=== PATIENT | male | born 1975 | race Hispanic/Latino ===

== ENCOUNTER 2022-05-26 11:20 | Emergency (ER) | payer OTHER ==
[~2022-05-26] VITALS: Ht 167.6 cm; Wt 77.1 kg
[2022-05-26 11:22] VITALS: BP 116/63
[2022-05-26] MEDS ORDERED: HYDROCODONE/ACETAMINOPHEN 5/325 MG TAB PO ONE (12:30)
[2022-05-26] MEDS ORDERED: ACET-2079 PO (12:53)
== END 2022-05-26 13:35 | disposition home or self-care (01) ==
LOC: EDH 11:20
DX: S82.141A Displaced bicondylar fracture of right tibia, initial encounter for closed fracture (principal); Y08.89XA Assault by other specified means, initial encounter; Y93.89 Activity, other specified; Y92.89 Other specified places as the place of occurrence of the external cause; Y99.8 Other external cause status
CPT/HCPCS: 73562

== ENCOUNTER 2022-06-13 11:59 | Emergency (ER) | payer OTHER ==
[~2022-06-13] VITALS: Ht 152.4 cm; Wt 77.1 kg
[~2022-06-13 11:59] MED LIST: ACET-2079 PO
[2022-06-13 12:01] VITALS: BP 125/74
[2022-06-13] MEDS ORDERED: LACT10SO5 PO (13:01)
== END 2022-06-13 14:07 | disposition home or self-care (01) ==
LOC: EDH 11:59
DX: K74.60 Unspecified cirrhosis of liver (principal); Z76.0 Encounter for issue of repeat prescription
CPT/HCPCS: 99281

== ENCOUNTER 2023-07-26 18:02 | Inpatient (IN) | payer OTHER ==
[~2023-07-26] VITALS: Ht 165.1 cm; Wt 87.0 kg
[~2023-07-26 18:02] MED LIST changes: +LACT10SO5 PO
[2023-07-26 19:43] LABS: RAPID GROUP A STREP negative (NEGATIVE)
[2023-07-26 19:53] LABS: SARS-CoV-2, RNA, NAAT NEGATIVE SARS CoV-2 (NEGATIVE)
[2023-07-26 19:55] LABS: INFLUENZA TYPE A Negative For Type A (NEGATIVE); INFLUENZA TYPE B Negative For Type B (NEGATIVE)
[2023-07-26] MEDS ORDERED: GUAIFENESIN-CODEINE 5 ML SYRUP PO ONE (20:30)
[2023-07-26] MEDS ORDERED: BENZONATATE 100 MG CAPSULE PO ONE (20:30)
[2023-07-26] MEDS ORDERED: IPRATROPIUM/ALBUTEROL SULFATE 3 ML SOLUTION IH ONE ×5 (21:47→22:00)
[2023-07-26 21:50] VITALS: PULSE 93; RESP 18
[2023-07-26] MEDS ORDERED: MAGNESIUM 2GM PREMIX 50ML 50 ML IV SCH (22:00)
[2023-07-26] MEDS ORDERED: SOLU-MEDROL 125MG VIAL IVP ONE (22:00)
[2023-07-26 23:17] LABS: BASOPHILS # (AUTO) 0.07 K/uL (0.00-0.20); BASOPHILS % (AUTO) 1.8 % (0.0-5.0); EOSINOPHILS # (AUTO) 0.32 K/uL (0.00-0.70); EOSINOPHILS % (AUTO) 8.2 % (0.0-8.0); HEMATOCRIT 44.8 % (42-54); IMMATURE GRANULOCYTE ABSOLUTE 0.01 K/uL (0-1); LYMPHOCYTES # (AUTO) 1.7 K/uL (1.0-4.8); LYMPHOCYTES % (AUTO) 44.3 % (21.0-51.0); MEAN CORPUSCULAR HEMOGLOBIN 29.8 pg (27.0-33.0); MEAN CORPUSCULAR HGB CONC 34.4 g/dL (32.0-36.0); MEAN CORPUSCULAR VOLUME 86.8 fL (79-99); MONOCYTES # (AUTO) 0.5 K/uL (0.1-1.0); MONOCYTES % (AUTO) 12.1 % (3.0-13.0); NEUTROPHILS # (AUTO) 1.3 K/uL (1.8-7.7); NEUTROPHILS % (AUTO) 33.3 % (40.0-77.0); PLATELET COUNT (AUTO) 92 K/uL (130-400); RED BLOOD CELL COUNT(AUTO) 5.16 MIL/uL (4.50-6.20); WHITE BLOOD COUNT (AUTO) 3.9 K/uL (4.8-10.8)
[2023-07-26 23:30] LABS: ALBUMIN 3.2 g/dL (3.5-5.0); BILIRUBIN,TOTAL 3.3 mg/dL (0.2-1.0); CREATININE 0.8 mg/dL (0.5-1.5); TOTAL PROTEIN, SERUM 6.5 g/dL (6.0-8.3)
[2023-07-26] MEDS ORDERED: IOHEXOL 350 MG/ML 100ML INFUS..BTL IV ONE (23:48)
[2023-07-27] VITALS (13 sets, daily range): BP systolic 147–166; BP diastolic 73–90; PULSE 100–127; RESP 17–22; O2SAT 96
[2023-07-27] MEDS: GUAIFENESIN-DM 200/20 MG 10 ML PO SCH ×4 (01:00→18:35)
[2023-07-27] MEDS ORDERED: ACETAMINOPHEN 325 MG TAB PO PRN ×2 (01:00)
[2023-07-27] MEDS ORDERED: HYDROCODONE/ACETAMINOPHEN 5/325 MG TAB PO PRN (01:00)
[2023-07-27] MEDS ORDERED: MORPHINE 4 MG SYG IV PRN (01:00)
[2023-07-27] MEDS ORDERED: ONDANSETRON 4MG INJ IV PRN (01:00)
[2023-07-27] MEDS ORDERED: RIFA550T PO (01:56)
[2023-07-27] MEDS ORDERED: GUAI473S6 PO (01:56)
[2023-07-27] MEDS ORDERED: BUPR-74 PO (01:58)
[2023-07-27] MEDS ORDERED: AZIL40TA PO (02:00)
[2023-07-27] MEDS ORDERED: GABA-529 PO (02:04)
[2023-07-27] MEDS ORDERED: GABAPENTIN 100 MG CAPSULE PO SCH (02:30)
[2023-07-27 05:26] LABS: BASOPHILS # (AUTO) 0.02 K/uL (0.00-0.20); BASOPHILS % (AUTO) 0.8 % (0.0-5.0); EOSINOPHILS # (AUTO) 0.03 K/uL (0.00-0.70); EOSINOPHILS % (AUTO) 1.2 % (0.0-8.0); HEMATOCRIT 39.6 % (42-54); IMMATURE GRANULOCYTE ABSOLUTE 0.01 K/uL (0-1); LYMPHOCYTES # (AUTO) 0.5 K/uL (1.0-4.8); LYMPHOCYTES % (AUTO) 19.6 % (21.0-51.0); MEAN CORPUSCULAR HEMOGLOBIN 29.7 pg (27.0-33.0); MEAN CORPUSCULAR HGB CONC 35.4 g/dL (32.0-36.0); MEAN CORPUSCULAR VOLUME 83.9 fL (79-99); MONOCYTES # (AUTO) 0.1 K/uL (0.1-1.0); NEUTROPHILS # (AUTO) 1.9 K/uL (1.8-7.7); PLATELET COUNT (AUTO) 85 K/uL (130-400); RED BLOOD CELL COUNT(AUTO) 4.72 MIL/uL (4.50-6.20); RED CELL DISTRIBUTION WIDTH 13.6 % (11.0-15.5); WHITE BLOOD COUNT (AUTO) 2.5 K/uL (4.8-10.8)
[2023-07-27 05:46] LABS: CREATININE 0.7 mg/dL (0.5-1.5); POTASSIUM 3.3 mmol/L (3.5-5.1)
[2023-07-27 05:50] LABS: INR 1.13 (0.85-1.15)
[2023-07-27 05:52] LABS: PARTIAL THROMBOPLASTIN TIME 31.6 SEC (26.3-35.5)
[2023-07-27 05:57] LABS: BAND NEUTROPHILS % (MANUAL) 1 % (0-2); BASOPHILS % (MANUAL) 1 % (0-2); EOSINOPHILS % (MANUAL) 1 % (1-6); LYMPHOCYTES % (MANUAL) 10 % (22-44); MAN.DIFF COMMENT-IMPRESSION MANUAL DIFFERENTIAL; MONOCYTES % (MANUAL) 1 % (2-9); REACTIVE LYMPHOCYTES 3 % (0-0); SEGMENTED NEUTROPHILS % 83 % (40-70); TOTAL CELLS COUNTED 100; WBC MORPHOLOGY REACTIVE LYMPHS 1+
[2023-07-27] MEDS: IPRATROPIUM/ALBUTEROL SULFATE 3 ML SOLUTION IH SCH ×4 (07:14→23:46)
[2023-07-27] MEDS: FAMOTIDINE 20MG TAB PO SCH ×2 (08:42→19:41)
[2023-07-27] MEDS: RIFAXIMIN 550 MG TABLET PO SCH ×2 (08:42→19:41)
[2023-07-27] MEDS: SOLU-MEDROL 40MG VIAL IVP SCH ×2 (08:42→15:11)
[2023-07-27] MEDS: BUPROPION HCL 150 MG TABLET.SA PO SCH (08:42)
[2023-07-27] MEDS ORDERED: AZILSARTAN MEDOXOMIL 40 MG PO SCH (09:00)
[2023-07-28] VITALS (8 sets, daily range): BP systolic 114–153; BP diastolic 67–89; PULSE 101–124; RESP 18–20; O2SAT 97–98
[2023-07-28] MEDS: SOLU-MEDROL 40MG VIAL IVP SCH ×2 (00:05→10:25)
[2023-07-28] MEDS: GUAIFENESIN-DM 200/20 MG 10 ML PO SCH ×3 (00:05→13:22)
[2023-07-28 05:59] LABS: BASOPHILS # (AUTO) 0.01 K/uL (0.00-0.20); BASOPHILS % (AUTO) 0.1 % (0.0-5.0); HEMATOCRIT 38.8 % (42-54); IMMATURE GRANULOCYTE ABSOLUTE 0.09 K/uL (0-1); LYMPHOCYTES # (AUTO) 0.7 K/uL (1.0-4.8); LYMPHOCYTES % (AUTO) 5.4 % (21.0-51.0); MEAN CORPUSCULAR HGB CONC 35.3 g/dL (32.0-36.0); MEAN CORPUSCULAR VOLUME 85.1 fL (79-99); MONOCYTES # (AUTO) 0.4 K/uL (0.1-1.0); MONOCYTES % (AUTO) 2.7 % (3.0-13.0); NEUTROPHILS # (AUTO) 12.2 K/uL (1.8-7.7); NEUTROPHILS % (AUTO) 91.1 % (40.0-77.0); PLATELET COUNT (AUTO) 91 K/uL (130-400); RED BLOOD CELL COUNT(AUTO) 4.56 MIL/uL (4.50-6.20); RED CELL DISTRIBUTION WIDTH 13.6 % (11.0-15.5); WHITE BLOOD COUNT (AUTO) 13.4 K/uL (4.8-10.8)
[2023-07-28 06:03] LABS: CREATININE 0.7 mg/dL (0.5-1.5); POTASSIUM 4.6 mmol/L (3.5-5.1)
[2023-07-28] MEDS: IPRATROPIUM/ALBUTEROL SULFATE 3 ML SOLUTION IH SCH ×2 (07:07→11:35)
[2023-07-28] MEDS: FAMOTIDINE 20MG TAB PO SCH (10:20)
[2023-07-28] MEDS: BUPROPION HCL 150 MG TABLET.SA PO SCH (10:20)
[2023-07-28] MEDS: RIFAXIMIN 550 MG TABLET PO SCH (10:20)
[2023-07-28] MEDS ORDERED: CEFD300C3 PO (14:27)
== END 2023-07-28 17:15 | disposition home or self-care (01) | DRG 203 ==
LOC: EDH 18:02 → EDHIP 18:03 → 3BH 07-27 01:02
PROVIDERS: ADMIT Internal Medicine; ATTEND Internal Medicine
DX: J45.998 Other asthma (principal); D69.6 Thrombocytopenia, unspecified; Z20.822 Contact with and (suspected) exposure to COVID-19; K74.60 Unspecified cirrhosis of liver; F31.9 Bipolar disorder, unspecified; I72.8 Aneurysm of other specified arteries; I10 Essential (primary) hypertension; F41.9 Anxiety disorder, unspecified; Z88.8 Allergy status to other drugs, medicaments and biological substances
CPT/HCPCS: 36415; 71045; 71270; 80048; 80053; 83605; 83735; 83880; 84484; 85025; 85610; 85730; 87040; 87635; 87804; 87880; 94640; 94664; C9803; G0378; J2920; J2930; J3475; Q9967

== ENCOUNTER 2024-08-05 16:24 | Inpatient (IN) | payer SELFPAY ==
[~2024-08-05] VITALS: Ht 167.6 cm; Wt 87.0 kg
[~2024-08-05 16:24] MED LIST changes: -ACET-2079 PO; +AZIL40TA PO; +BUPR-74 PO; +CEFD300C3 PO; +GABA-529 PO; +GUAI473S6 PO; -LACT10SO5 PO; +RIFA550T PO
--- NOTE | 2024-08-05 17:19 | ERN ---
ED Note History of Present Illness Stated Complaint: BLOOD IN STOOL, WEAK , NAUSEA Chief Complaint: Tarry Stool Time Seen by MD: 17:07 Time Seen by Midlevel: 17:07 Dictation: The patient is a 49-year-old male with a history of bipolar, depression, anxiety who presents to the emergency department with complaints of dark bloody stools onset this morning. Patient reports six stools, reports epigastric and right upper abdominal pain associated with nausea nonbloody vomiting. Patient reports he had done a colonoscopy and endoscopy yesterday at [facility] in [place] for evaluation of gastritis and esophageal varices. Patient denies any fevers. Allergies: Coded Allergies: carbamazepine (Unverified Allergy, Intermediate, 08/05/24) Uncoded Allergies: UNKOWN VITAMIN (Allergy, Unknown, 05/26/22) RASH Home Meds Reported Medications Aripiprazole (Abilify) 20 Mg Tablet, 1 TAB PO DAILY for 30 Days, #30 TAB 0 Refills 08/06/24 Trazodone HCl (Trazodone HCl) 50 Mg Tablet, 4 TAB PO HS for 30 Days, #30 TAB 0 Refills 08/06/24 Gabapentin (Gabapentin) 100 Mg Capsule, 1 CAP PO BID for 30 Days, #90 CAP 0 Refills 08/06/24 Dexlansoprazole (Dexilant) 30 Mg Cap., 1 CAP PO DAILY for 30 Days, #30 CAP 0 Refills 08/06/24 Bupropion HCl (Bupropion HCl Sr) 150 Mg Tablet.er, 150 MG PO DAILY, TAB 07/27/23 Rifaximin (Xifaxan) 550 Mg Tablet, 550 MG PO BID, TAB 07/27/23 Discontinued Reported Medications Gabapentin (Gabapentin) 100 Mg Capsule, 100 MG PO [id number] for ANXIETY, CAP 07/27/23 Azilsartan Medoxomil (Edarbi) 40 Mg Tablet, 40 MG PO DAILY, TAB 07/27/23 Guaifenesin/Codeine Phosphate (Guaifenesin-Codeine Syrup) 10 Mg-100 Mg/5 Ml Liquid, 10 ML PO Q6HPRN PRN for cough 07/27/23 Discontinued Scripts Cefdinir (Cefdinir) 300 Mg Capsule, 300 MG PO BID for 5 Days, #10 CAP Prov:ANNIE MONTILLA MD 07/28/23 Past Medical History Past Medical History: Anxiety, Bipolar, Depression, Hypertension Additional Past Medical Hx: LUKEMIA Surgical History: Other Surgical History Other: EGD, COLONOSCOPY Social History: Negative, Lives with family RN Note Reviewed/Agreed w/PFSH: Yes Review of System Dictation Constitutional: Negative for fever,chills, and weight loss Eyes: Negative for injury, pain,redness, and discharge ENT: Negative for injury,pain or swelling Cardiovascular: Negative for chest pain, palpitations, and edema Respiratory: Negative for shortness of breath, cough, and wheezing, Abdomen/GI: Negative for diarrhea, and constipation positive for abdominal pain, nausea, vomiting, bloody stools Back: Negative for injury and pain : Negative for injury, bleeding and discharge MS/Extremity: Negative for injury and deformity Skin: Negative for rash, and discoloration Neuro: Negative for headache, weakness, numbness, tingling, and seizure Psych: Negative for suicide ideation, homicidal ideation, and hallucinations Initial Vital Sign VS Vital Signs Date Time Temp Pulse Resp B/P (MAP) Pulse Ox O2 Delivery O2 Flow Rate FiO2 08/05/24 16:39 97.5 98 20 151/97 100 Room Air 08/05/24 20:13 0 21 Physical Exam Dictation Vital Signs reviewed General Appearance: Alert, oriented x 3, no acute distress, well developed, nourished. Head and Face: non-traumatic. Eyes: PERRL, pink conjunctivas, eyelid no trauma, anterior chamber with arcus senilis. Ears: Pinnas intact and no signs of trauma or erythema ear canals clear and no discharge TM no erythema Nose: No discharge, no bleeding. Oropharynx: Mouth normal, tongue pink. pharynx clear,no erythema, tonsils no exudates, no abscesses noted, mucous membrane moist Neck: Supple, non-tender, no thyromegaly, no masses, no JVD, no bruits Breast:Deferred Chest:No tenderness, no crepitus, no paradoxical movement, no retractions Lungs:Clear, well-ventilated, symmetric, no rales, no wheezing, no rhonchi, no stridor, good breath sounds bilaterally Heart: Regular rate, regular rhythm, no murmur, no gallops Vascular: no peripheral edema, Abdomen: Soft, positive bowel sounds, nondistended, no guarding, nontender, no rebound, no masses no hepatomegaly, no splenomegaly, no Proctor's sign, no hernias. Rectal: No external hemorrhoids, bright red stool. Genital: Deferred Neurological: Normal speech, motor function intact, sensory function intact Musculoskeletal: Neck nontender, full range of motion, back nontender, full range of motion, Extremities: nontender, full range of motion Skin: Color pink, dry, no turgor, no rash, no lacerations, no abrasions, no contusions. Lymphatic: Deferred Results (Laboratory/Radiology) Laboratory/Radiology Laboratory Tests Test 08/05/24 12:50 08/05/24 17:50 08/05/24 17:52 Stool Occult Blood POSITIVE (NEGATIVE) H Urine Color LIGHT-YELLOW (YELLOW) Urine Appearance CLEAR (CLEAR) Urine pH 7.5 (5.0-8.0) Urine Specific [place] 1.008 (1.001-1.031) Urine Protein NEGATIVE mg/dL (NEGATIVE) Urine Glucose (UA) NEGATIVE mg/dL (NEGATIVE) Urine Ketones NEGATIVE mg/dL (NEGATIVE) Urine Occult Blood NEGATIVE (NEGATIVE) Urine Nitrate NEGATIVE (NEGATIVE) Urine Bilirubin NEGATIVE mg/dL (NEGATIVE) Urine Urobilinogen 0.2 mg/dL (0.2-1.0) Urine Leukocyte Esterase NEGATIVE Fern/uL White Blood Count 3.3 K/uL (4.8-10.8) L Red Blood Count 4.70 MIL/uL (4.50-6.20) Hemoglobin 13.6 g/dL (14.0-18.0) L Hematocrit 38.8 % (42-54) L Mean Corpuscular Volume 82.6 fL (79-99) Mean Corpuscular Hemoglobin 28.9 pg (27.0-33.0) Mean Corpuscular Hemoglobin Concent 35.1 g/dL (32.0-36.0) Red Cell Distribution Width 14.3 % (11.0-15.5) Platelet Count 87 K/uL (130-400) L Mean Platelet Volume 11.1 fL (7.5-10.5) H Immature Granulocyte % (Auto) 0.3 % (0-1) Neutrophils (%) (Auto) 47.4 % (40.0-77.0) Lymphocytes (%) (Auto) 36.6 % (21.0-51.0) Monocytes (%) (Auto) 10.2 % (3.0-13.0) Eosinophils (%) (Auto) 4.3 % (0.0-8.0) Basophils (%) (Auto) 1.2 % (0.0-5.0) Neutrophils # (Auto) 1.5 K/uL (1.8-7.7) L Lymphocytes # (Auto) 1.2 K/uL (1.0-4.8) Monocytes # (Auto) 0.3 K/uL (0.1-1.0) Eosinophils # (Auto) 0.14 K/uL (0.00-0.70) Basophils # (Auto) 0.04 K/uL (0.00-0.20) Absolute Immature Granulocyte (auto 0.01 K/uL (0-1) Nucleated Red Blood Cells 0.0 % (0.0-0.19) Prothrombin Time 11.9 SEC (9.6-11.6) H Prothromb Time International Ratio 1.07 (0.85-1.15) Activated Partial Thromboplast Time 29.1 SEC (26.3-35.5) Sodium Level 143 mmol/L (136-145) Potassium Level 4.2 mmol/L (3.5-5.1) Chloride Level 112 mmol/L (101-111) H Carbon Dioxide Level 26 mmol/L (21-32) Blood Urea Nitrogen 9 mg/dL (7-18) Creatinine 1.0 mg/dL (0.5-1.3) Glomerular Filtration Rate Calc 93 mL/min (>90) Random Glucose 89 mg/dL (70-105) Total Calcium 8.4 mg/dL (8.5-10.1) L Total Bilirubin 1.7 mg/dL (0.2-1.0) H Direct Bilirubin 0.4 mg/dL (0.0-0.3) H Aspartate Amino Transf (AST/SGOT) 44 U/L (10-37) H Alanine Aminotransferase (ALT/SGPT) 25 U/L (12-78) Alkaline Phosphatase 166 U/L (50-136) H Total Protein 6.1 g/dL (6.0-8.3) Albumin 3.1 g/dL (3.5-5.0) L Lipase 62 U/L (16-77) Labs Reviewed?: Yes ED Course ED Course Orders Procedure Category Date Status Time Vital Signs Per CPOE 08/05/24 Transmitted Routine 16:45 Saline Lock Iv CPOE 08/05/24 Transmitted 16:45 Cbc With Differential LAB 08/05/24 Complete 16:45 Lipase LAB 08/05/24 Complete 16:45 Basic Metabolic Panel LAB 08/05/24 Complete 16:45 Urinalysis Profile LAB 08/05/24 Complete 16:45 Hepatic Function Panel LAB 08/05/24 Complete 17:15 Pt And Ptt LAB 08/05/24 Complete 17:15 Occult Blood Stool LAB 08/05/24 Complete Single Only 17:15 0.9%Nacl 1000ml (Ns PHA 08/05/24 Complete 1000ml) 17:30 Ondansetron 4mg Inj PHA 08/05/24 Complete (Zofran 4mg Inj) 17:30 Pantoprazole 40mg Inj PHA 08/05/24 Complete (Protonix 40mg Inj 17:30 Ct Abdomen/Pelvis CT 08/05/24 Resulted W/Contrast 19:49 Iohexol (Omnipaque) PHA 08/05/24 Complete 21:06 Pantoprazole 40mg Inj PHA 08/05/24 Complete (Protonix 40mg Inj 23:30 Pantoprazole 40mg Inj PHA 08/05/24 In Process (Protonix 40mg Inj 23:30 Admit Orders ADM 08/05/24 Transmitted 23:28 Activity: Ad Edilia CPOE 08/05/24 Transmitted 23:28 Apply Knee High Teds CPOE 08/05/24 Transmitted 23:28 Apply Scds CPOE 08/05/24 Transmitted 23:28 Condition: CPOE 08/05/24 Transmitted 23:28 Oxygen By Nc/Pulse Ox CPOE 08/05/24 Transmitted 23:28 Vital Signs(Adult CPOE 08/05/24 Transmitted Hospitalist) 23:28 Keep Patient Npo CPOE 08/05/24 Transmitted 23:28 Admit Orders ADM 08/05/24 Transmitted 23:34 Edm Admit Bridge Order ADM 08/05/24 Transmitted 23:34 Current Medications Medications (Trade) Dose Ordered Sig/Arturo Route PRN Reason Start Time Stop Time Status Last Admin Dose Admin Iohexol (Omnipaque) 35,000 mg STK-MED ONCE IV 08/05/24 21:06 08/05/24 21:06 DC Ondansetron HCl (zoFRAN 4MG INJ) 4 mg ONCE ONCE IVP 08/05/24 17:30 08/05/24 17:31 DC 08/05/24 21:21 Pantoprazole Sodium (PROTonix 40MG INJ) 40 mg ONCE ONCE IVP 08/05/24 17:30 08/05/24 17:31 DC 08/05/24 21:21 Pantoprazole Sodium (PROTonix 40MG INJ) 40 mg ONCE ONCE IVP 08/05/24 23:30 08/05/24 23:31 DC Pantoprazole Sodium 80 mg/ Sodium Chloride 100 ml @ 10 mls/hr Q10H IVP 08/05/24 23:30 09/04/24 23:29 Sodium Chloride 1,000 ml @ 0 mls/hr ONCE ONCE IV 08/05/24 17:30 08/05/24 17:31 DC 08/05/24 21:21 Vital Signs Date Time Temp Pulse Resp B/P (MAP) Pulse Ox O2 Delivery O2 Flow Rate FiO2 08/05/24 20:13 97.5 74 20 151/97 99 Room Air* 0 21 08/05/24 16:39 97.5 98 20 151/97 100 Room Air Medical Decision Making MDM MDM: The patient is a 49-year-old male with a history of bipolar, depression, anxiety who presents to the emergency department with complaints of dark bloody stools onset this morning. Patient reports six stools, reports epigastric and r ight upper abdominal pain associated with nausea nonbloody vomiting. Patient reports he had done a colonoscopy and endoscopy yesterday at [facility] in [place] for evaluation of gastritis and esophageal varices. Patient denies any fevers. CBC showed no leukocytosis, mild normocytic anemia, thrombocytopenia, chemistry showed evaluated liver enzymes, patient with cirrhosis of the liver, CT abdomen showed distended bladder, cirrhotic liver. Patient has occult blood positive. Patient will be admitted further management. Differential diagnosis: Electrolyte imbalance, dehydration, GI bleed, pancreatitis Comorbidities: Depression, anxiety, gastritis, history of alcoholism, cirrhosis of the liver Tests considered and not ordered secondary to shared decision making include: none Previous outside records reviewed: none Risk of complication and/or morbidity or mortality of patient management: The patient meets criteria for admission. Need for emergency major/minor surgery: No There are no social concerns with this patient. I independently interpreted the tests I ordered (labs, urinalysis, etc.). I discussed the case with the hospitalist for admission. Alireza YATES who accepts admission I discussed the case with the following specialists: none. Historian: pateint. I independently interpreted imaging studies and EKGs that I ordered (US, CT, XR, EKG, etc.). External chart review: none. Medical management and examination interpretation discussions were had by me with other qualified healthcare professionals as indicated for the patient's care. DX & DISP Disposition: Inpatient Decision to Admit Date: Aug 05, 2024 Decision to Admit Time: 23:40 Departure Impression: Primary Impression: GI bleed Additional Impressions: Cirrhosis of liver, Thrombocytopenia Condition: Stable Referrals: NONE (PCP) I have reviewed the case, and I agree with, Diagnosis and Plan ATTESTATION BY PHYSICIAN I PERFORMED THE SUBSTANTIVE PORTION OF THE VISIT. I HAVE REVIEWED AND PERSONALLY MADE AND APPROVED THE MANAGEMENT PLAN THAT IS DOCUMENTED IN THE NOTE BY MYSELF FOR THE A PP. I ACKNOWLEDGED FOR RESPONSIBILITY FOR THE PATIENT'S MANAGEMENT PLAN. SAMY TELLO Aug 05, 2024 17:19 SERENITY AMARO MD Aug 08, 2024 20:22
[2024-08-05 18:36] LABS: APPEARANCE,URINE CLEAR (CLEAR); BILIRUBIN,URINE NEGATIVE (NEGATIVE); COLOR,URINE LIGHT-YELLOW (YELLOW); GLUCOSE, URINE (UA) NEGATIVE (NEGATIVE); KETONES,URINE NEGATIVE (NEGATIVE); LEUKOCYTE ESTERASE ,URINE NEGATIVE Leu/uL (NEGATIVE); NITRATE,URINE NEGATIVE (NEGATIVE); OCCULT BLOOD,URINE NEGATIVE (NEGATIVE); PH,URINE 7.5 (5.0-8.0); PROTEIN,URINE NEGATIVE (NEGATIVE); UROBILINOGEN,URINE 0.2 mg/dL (0.2-1.0)
[2024-08-05 18:42] LABS: BASOPHILS # (AUTO) 0.04 K/uL (0.00-0.20); BASOPHILS % (AUTO) 1.2 % (0.0-5.0); EOSINOPHILS # (AUTO) 0.14 K/uL (0.00-0.70); EOSINOPHILS % (AUTO) 4.3 % (0.0-8.0); HEMATOCRIT 38.8 % (42-54); IMMATURE GRANULOCYTE ABSOLUTE 0.01 K/uL (0-1); LYMPHOCYTES # (AUTO) 1.2 K/uL (1.0-4.8); LYMPHOCYTES % (AUTO) 36.6 % (21.0-51.0); MEAN CORPUSCULAR HEMOGLOBIN 28.9 pg (27.0-33.0); MEAN CORPUSCULAR HGB CONC 35.1 g/dL (32.0-36.0); MEAN CORPUSCULAR VOLUME 82.6 fL (79-99); MONOCYTES # (AUTO) 0.3 K/uL (0.1-1.0); MONOCYTES % (AUTO) 10.2 % (3.0-13.0); NEUTROPHILS # (AUTO) 1.5 K/uL (1.8-7.7); NEUTROPHILS % (AUTO) 47.4 % (40.0-77.0); PLATELET COUNT (AUTO) 87 K/uL (130-400); RED CELL DISTRIBUTION WIDTH 14.3 % (11.0-15.5); WHITE BLOOD COUNT (AUTO) 3.3 K/uL (4.8-10.8)
[2024-08-05 18:44] LABS: ADD UA MICROSCOPIC NO
[2024-08-05 18:53] LABS: INR 1.07 (0.85-1.15); PROTHROMBIN TIME 11.9 SEC (9.6-11.6)
[2024-08-05 18:54] LABS: PARTIAL THROMBOPLASTIN TIME 29.1 SEC (26.3-35.5); POTASSIUM 4.2 mmol/L (3.5-5.1)
[2024-08-05 19:04] LABS: ALBUMIN 3.1 g/dL (3.5-5.0); BILIRUBIN,DIRECT 0.4 mg/dL (0.0-0.3); BILIRUBIN,TOTAL 1.7 mg/dL (0.2-1.0); TOTAL PROTEIN, SERUM 6.1 g/dL (6.0-8.3)
[2024-08-05] MEDS ORDERED: IOHEXOL 350 MG/ML 100ML INFUS..BTL IV ONE (21:06)
--- NOTE | 2024-08-05 21:15 | HMCIMG ---
CT ABDOMEN/PELVIS W/CONTRAST HISTORY: Abdominal Pain s/p colonoscopy egd TECHNIQUE: CT ABDOMEN/PELVIS W/CONTRAST Omnipaque contrast was used. Oral contrast was not given. Coronal and sagittal reformats were obtained. CT was performed with one or more of the following dose reduction techniques: Automated exposure control, adjustment of the mA and/or kV according to the patient's size, or use of the iterative reconstruction technique. Comparison: None. FINDINGS: No pulmonary consolidation or pleural effusion is seen. Cirrhotic morphology of the liver is seen with splenomegaly and persistent rise in the upper abdomen. The spleen measures 17.3 cm. Patent TIPS stent is noted. There is no calcified gallstone. Nonobstructing 4 mm left intrarenal calculus is seen in the lower pole. The spleen, pancreas, and adrenal glands are within normal limits. Distended urinary bladder. Correlate for urinary retention. No bowel obstruction is seen. Normal appendix. Reproductive organs are grossly within normal limits for patient's age. No bowel obstruction identified. Appendix is normal in caliber. Degenerative changes of the spine. Visualized aorta is normal in caliber. IMPRESSION: 1. Distended urinary bladder. Correlate for urinary retention. 2. No bowel obstruction is seen. Normal appendix. 3. Cirrhosis with portal hypertension and patent TIPS stent. 4. Additional findings as described above. .
[2024-08-05] MEDS: 0.9%NACL 1000ML 1,000 ML IV ONE (21:21)
[2024-08-05] MEDS: PANTOPrazole 40 MG/VIAL IVP ONE (21:21)
[2024-08-05] MEDS: ondanSETRON 4MG INJ IVP ONE (21:21)
[2024-08-05] MEDS ORDERED: PANTOPrazole 40MG INJ 80 MG in 0.9%NACL 100ML 100 ML IVP SCH (23:30)
--- NOTE | 2024-08-05 23:31 | HP ---
History of Present Illness Reason for Visit: bloody stools History of Present Illness Mr. Rae is a 49-year-old male that was seen and examined today on 08/06/2024. Patient is a good historian and personal health. Patient reports that he came to the emergency department with a chief complaint bloody stools. Onset was 08/04/24. At 7:30 p.m.. Preceding event was getting home from [facility] where he had a colonoscopy and endoscopy. Location is to [facility]. Duration is on and off. Symptoms are aggravated with defecation. There was no alleviating factors. Character is described as purplish. Patient reports associated lightheadedness while defecating. Today in the emergency department WBCs 3.3, platelets 87, stool positive for occult blood. Emergency room physician recommended that patient be admitted with a diagnosis of GI bleed so they could be evaluated by Gastroenterology Service. Past Medical History ADDITIONAL PAST MEDICAL HISTORY: [Hypertension, liver cirrhosis, "childhood leukemia", depression, anxiety, bipolar disorder] SOCIAL HISTORY: [Patient denies smoking, call use, drug use. Patient has been sober since 2016. 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 Patient is typically independent of all his ADLs. Patient has good access to healthcare through [facility] indigent care at [facility]. ] SURGICAL HISTORY: [Bone marrow procedure unsure of bone marrow transplant but states his childhood leukemia is resolved, EGD, colonoscopy] Review of Systems General: No Fever, No Chills, No Night Sweats, No Fatigue, No Malaise, No Appetite, No Other HEENT: No Head Aches, No Visual Changes, No Eye Pain, No Ear Pain, No Dysphasia, No Sinus Congestion, No Post Nasal Drip, No Sore Throat, No Other Pulmonary: No Dyspnea, No Cough, No Pleuritic Chest Pain, No Other Cardiovascular: Lt Headedness; No: Chest Pain, Palpitations, Orthopnea, Paroxysmal Noc. Dyspnea, Edema, Other Gastrointestinal: Melena; No: Nausea, Vomiting, Abdominal Pain, Diarrhea, Constipation, Hematochezia, Other Genitourinary: No Dysuria, No Frequency, No Incontinence, No Hematuria, No Retention, No Other Musculoskeletal: No: other, neck pain, shoulder pain, arm pain, back pain, hand pain, leg pain, foot pain Skin: No Urticaria, No Rash, No Other Neurological: No: Weakness, Numbness, Incoordination, Change in speech, Confusion, Seizures, Other Allergies: Coded Allergies: carbamazepine (Unverified Allergy, Intermediate, 08/05/24) Uncoded Allergies: UNKOWN VITAMIN (Allergy, Unknown, 05/26/22) RASH Scheduled Aripiprazole (Abilify), 1 TAB PO DAILY, (Reported) Bupropion HCl (Bupropion HCl Sr), 150 MG PO DAILY, (Reported) Dexlansoprazole (Dexilant), 1 CAP PO DAILY, (Reported) Gabapentin (Gabapentin), 1 CAP PO BID, (Reported) Rifaximin (Xifaxan), 550 MG PO BID, (Reported) Trazodone HCl (Trazodone HCl), 4 TAB PO HS, (Reported) Discontinued Medications Azilsartan Medoxomil (Edarbi), 40 MG PO DAILY, (Reported) Cefdinir (Cefdinir), 300 MG PO BID Gabapentin (Gabapentin), 100 MG PO [id number], (Reported) Guaifenesin/Codeine Phosphate (Guaifenesin-Codeine Syrup), 10 ML PO Q6HPRN PRN for cough, (Reported) Exam Vital Signs Vital Signs Date Time Temp Pulse Resp B/P (MAP) Pulse Ox O2 Delivery O2 Flow Rate FiO2 08/05/24 20:13 97.5 74 20 151/97 99 Room Air* 0 21 General Appearance: Alert, Oriented X3, Cooperative, No acute distress HEENT: Atraumatic, PERRLA, EOMI, Mucous membr. moist/pink Respiratory: Clear to auscultation, Normal air movement, NL respiratory effort Cardiovascular: Regular rate, Regular rhythm, Normal S1, Normal S2 Abdominal: Normal bowel sounds, Soft, No tenderness Extremities: No edema Skin: No significant lesion Neuro: Normal speech, Strength at 5/5 X4 ext, Sensation intact, Cranial nerves 3-12 NL Psych/Mental Status: Mental status NL, Mood NL, Thoughts/Content NL Assessment/Plan ASSESSMENT: [ GI bleed, POA Neutropenia, POA Thrombocytopenia, POA Liver cirrhosis Depression Anxiety Bipolar disorder] PLAN: [ Admit patient to medical floor as inpatient status. Consult Gastroenterology Service, Dr. Allan. Keep patient NPO. Check preprocedure labs, CBC, BMP, magnesium, phosphorus, PTT, UA, type and screen, EKG, CXR IV fluid maintenance therapy I conservative rate 50 mL/HR with an automatic. Date and time of 08/06/2024 at noon. As needed analgesia with morphine. Check hemoglobin and hematocrit every 6 hours. Patient received Protonix 40 mg IV times 1 in the ER. Start Protonix drip per hospital protocol. Administer Sandostatin 50 mcg IV times 1. Continue Sandostatin drip per hospital protocol. Transfuse packed red blood cells for hemoglobin less than 7 mg/dL. Monitor intake and output every shift. Weight patient daily. Check ammonia level, follow up with the results. Consider starting lactulose 20 g/30 mL by mouth twice daily once patient is no longer NPO, or if no indicated procedures after gastroenterology evaluation. Recheck ammonia level in a.m. Consider resuming home medications once they are reconciled GI prophylaxis, Protonix drip as stated above. DVT prophylaxis, Derian's and SCDs avoid anticoagulation at this time due to diagnosis of GI bleed. ADVANCED CARE PLANNING 1. Which of the following were discussed? Hospice Care - Yes Therapeutic options - Yes Advance Directives - Yes- patient states he does not have any advance directives in place at this time, however his father can make decisions for him if he becomes unable. Other discussions - patient wishes to remain a full code at this time 2. Discussed with who? Patient 3. Voluntary nature of this service was explained to the patient? Yes 4. Amount of time spent - ____ 16 minutes ___ 5. Reviewed by Physician? (if this service was performed by NPP) Yes This document was generated in part using voice recognition software, occasional wrong word or sound alike substitutions may have occurred due to the inherent limitations of voice recognition software. Read the chart carefully and recogni ze using context, where the substitutions have occurred. Although every effort was made to edit the content, conformal pad former and typing errors may occur ADDENDUM: ATTENDING PHYSICIAN ATTESTATION: I have seen and discussed this patient with the midlevel and I agree with their plan. See my addendum for updates to the medical plan MD DEVON Lynn [facility] Aug 05, 2024 23:31 J CARLOS DAMON MD Aug 06, 2024 17:27
[2024-08-05] MEDS ORDERED: morPHINE 2 MG SYG IVP PRN (23:45)
[2024-08-06] VITALS (9 sets, daily range): BP systolic 111–133; BP diastolic 60–74; PULSE 77–84; RESP 17–18; TEMP 97.6–98.3; O2SAT 96–99
[2024-08-06] MEDS ORDERED: ondanSETRON 4MG INJ IV PRN
[2024-08-06] MEDS ORDERED: acetaMINOPHEN 650 MG SUPPOSITORY RC PRN
[2024-08-06] MEDS ORDERED: hydrALAZine 20MG/ML VIAL IV PRN
--- NOTE | 2024-08-06 00:23 | NUR ---
REPORT GIVEN TO MARTIN OSBORNE.
--- NOTE | 2024-08-06 00:35 | NUR ---
ADMIT PT ADMITTED TO ROOM 328, AAOX4. AMBULATORY WITHOUT ANY ASSIST. ADMISSION CARE DONE. ADMISSION V/S MONITORED, STABLE. ADMISSION ASSESSMENT DONE, PLEASE REFER TO CHART. STARTED PT ON IVF OF NS REGULATED AT 50CC/HR. INSERTED SECOND PIV TO LEFT HAND G20, TOLERATED WELL. STARTED PROTONIX AND SANDOSTATIN DRIPS ORDERED. SCD'S APPLIED TO BLE. ADMISSION DATA BASE COMPLETED. UPDATED HOME MEDS IN THE COMPUTER. PLACED NPO ORDERED. ORIENTED TO ROOM AND UNIT. IN FOR MORE CARE AND MANAGEMENT. Addendum: 08/06/24 at 0152 by ELIF CLEMENS RN RN Amended: Links added.
[2024-08-06] MEDS: PANTOPrazole 40 MG/VIAL IVP ONE (00:36)
[2024-08-06] MEDS: 0.9%NACL 1000ML 1,000 ML IV SCH (00:41)
[2024-08-06] MEDS: octREOtide aceTATe 100 MCG/ML AMP IV ONE (00:42)
[2024-08-06] MEDS: PANTOPrazole 40MG INJ 80 MG in 0.9%NACL 100ML 100 ML IVP SCH (00:57)
[2024-08-06] MEDS: octREOtide aceTATe 1,250 MCG in 0.9% NACL 250ML 250 ML IV SCH (00:59)
[2024-08-06 01:07] LABS: HEMATOCRIT 37.9 % (42-54)
[2024-08-06] MEDS ORDERED: TRAZ-185 PO (01:13)
[2024-08-06] MEDS ORDERED: GABA-529 PO (01:13)
[2024-08-06] MEDS ORDERED: ARIP20TA PO (01:13)
[2024-08-06] MEDS ORDERED: DEXL30CA3 PO (01:13)
--- NOTE | 2024-08-06 03:09 | EKG ---
[facility] Test Date: 2024-08-06 Test Time: 00:14:55 Pat Name: CARMEN VALENZUELA Department: [facility] Room: 328 1 Gender: M Cruller Maker: [id number] : 1975 Requested By: ELVIN OSORIO Order Number: [id number] Reading MD: Darren Shafer Measurements Intervals [place] Rate: 84 P: 8 MN: 178 QRS: 9 QRSD: 95 T: 11 QT: 395 QTc: 468 Interpretive Statements Sinus rhythm No previous ECG available for comparison Electronically Signed On 08-06-2024 14:09:50 HORSERADISH MAKER by Darren Shafer Please click the below link to view image of tracing.
[2024-08-06 06:11] LABS: BASOPHILS # (AUTO) 0.04 K/uL (0.00-0.20); BASOPHILS % (AUTO) 1.8 % (0.0-5.0); EOSINOPHILS # (AUTO) 0.15 K/uL (0.00-0.70); EOSINOPHILS % (AUTO) 6.8 % (0.0-8.0); HEMATOCRIT 32.7 % (42-54); IMMATURE GRANULOCYTE ABSOLUTE 0.01 K/uL (0-1); LYMPHOCYTES # (AUTO) 0.9 K/uL (1.0-4.8); LYMPHOCYTES % (AUTO) 40.3 % (21.0-51.0); MEAN CORPUSCULAR HEMOGLOBIN 28.9 pg (27.0-33.0); MEAN CORPUSCULAR HGB CONC 34.9 g/dL (32.0-36.0); MONOCYTES # (AUTO) 0.3 K/uL (0.1-1.0); MONOCYTES % (AUTO) 12.7 % (3.0-13.0); NEUTROPHILS # (AUTO) 0.8 K/uL (1.8-7.7); NEUTROPHILS % (AUTO) 37.9 % (40.0-77.0); PLATELET COUNT (AUTO) 67 K/uL (130-400); RED BLOOD CELL COUNT(AUTO) 3.94 MIL/uL (4.50-6.20); RED CELL DISTRIBUTION WIDTH 14.4 % (11.0-15.5); WHITE BLOOD COUNT (AUTO) 2.2 K/uL (4.8-10.8)
--- NOTE | 2024-08-06 06:15 | NUR ---
ROUNDS PT RESTING WELL, NO DISTRESS NOTED. NO EPISODE OF BLOODY STOOLS SINCE ADMISSION TO THE FLOOR. NO COMPLAINTS VERBALIZED. NO DISTRESS NOTED. KEPT NPO STILL ORDERED. KEPT COMFORTABLE. FOR MORE CARE.
[2024-08-06 06:23] LABS: INR 1.2 (0.85-1.15); PROTHROMBIN TIME 13.2 SEC (9.6-11.6)
[2024-08-06 06:25] LABS: PARTIAL THROMBOPLASTIN TIME 32.1 SEC (26.3-35.5)
[2024-08-06 06:32] LABS: MAGNESIUM 1.7 mg/dL (1.80-2.40); PHOSPHORUS 3.5 mg/dL (2.5-4.9); POTASSIUM 3.9 mmol/L (3.5-5.1)
--- NOTE | 2024-08-06 09:02 | HMCIMG ---
Exam Type: CHEST 1VW Clinical Information: pre procedural Comparison: None Findings: The lungs are clear of infiltrates. The heart is normal in size. The bony and soft tissue structures of the chest are unremarkable. Impression: Clear lungs.
[2024-08-06 10:05] LABS: HEMATOCRIT 33.1 % (42-54)
--- NOTE | 2024-08-06 10:26 | NUR ---
MIGUEL ANGEL PAGED RESEARCH PROJECT MANAGER SERVICE AND SPOKE WITH DINESH REGARDING NEW CONSULT FOR DR GRIFFIN. STATED SHE WILL BE SENDING PAGE OUT. PLAN OF CARE ON GOING.
[2024-08-06] MEDS: LACTULOSE 20 GM/30 ML UDCUP PO SCH (11:17)
[2024-08-06] MEDS ORDERED: COMPOUND IV REFRIGERATED 1 EACH IVSOLN MISC PRN (12:00)
[2024-08-06 12:29] LABS: EOSINOPHILS % (MANUAL) 5 % (1-6); LYMPHOCYTES % (MANUAL) 42 % (22-44); MAN.DIFF COMMENT-IMPRESSION MANUAL DIFFERENTIAL; MONOCYTES % (MANUAL) 3 % (2-9); PLATELET MORPHOLOGY COMMENT DECREASED; REACTIVE LYMPHOCYTES 1 % (0-0); SEGMENTED NEUTROPHILS % 49 % (40-70); TOTAL CELLS COUNTED 100
--- NOTE | 2024-08-06 14:26 | NUR ---
DCP Pt awake, alert, oriented X3 lives with his Father Stanislav Rae [phone]. PCP is Dr Schuler from [facility]. Pt states does not have medical equipment, verbalizes he is able to perform ADLs, community resource list provided. Anticipates discharge plan is for home. Addendum: 08/06/24 at 1435 by JUAN MANUEL PATEL RN Amended: Links added.
[2024-08-06 16:28] LABS: HEMATOCRIT 34.3 % (42-54)
--- NOTE | 2024-08-06 17:35 | PN ---
[facility] PROGRESS NOTE Date of Service: Aug 06, 2024 Time of Service: 17:28 SUBJECTIVE: 08/06 patient seen at bedside, no acute events overnight. Patient has not had bloody bowel movement since admission. Hemoglobin stable at 11.4, sodium increased from 143 up to 146, ammonia elevated at 59, we will start patient on lactulose 20 g b.i.d. and titrate to two bowel movements per day. GI has been consulted, recommendations still pending, we will follow up. REVIEW OF SYSTEMS 12 point review of systems negative unless noted in HPI PHYSICAL EXAM GENERAL APPEARANCE: The patient is awake, alert, and oriented, in no acute cardiopulmonary distress. NEUROLOGICAL: Cranial nerves II-XII grossly intact. Motor is 5/5 in bilateral upper and lower extremities proximal to distal. No sensory deficits. HEENT: Face is symmetric. Pupils are equal and reactive. Extraocular movements are intact. NECK: Supple. No JVD. No thyromegaly. No submental, submandibular, pre- /postauricular, occipital or supraclavicular lymphadenopathy. CHEST: Normal chest expansion. No Telemetry. LUNGS: Absence of any rales, rhonchi or any wheezing. CARDIOVASCULAR: Regular. S1 and S2 normal. No appreciable rubs, murmurs or gallops. ABDOMEN: Soft, nontender, and nondistended. There is no rebound, voluntary guarding, or rigidity. : Deferred. No Conley. EXTREMITIES: Non-edematous and not cyanotic. No clubbing. Good capillary refill. SKIN: No skin breakdown. Vital Signs (last 8hr) Date Time Temp Pulse Resp B/P (MAP) Pulse Ox O2 Delivery O2 Flow Rate FiO2 08/06/24 16:00 97.9 82 18 126/70 99 Room Air 08/06/24 12:00 98.2 82 18 117/65 97 Room Air LABS: Laboratory: Test 08/06/24 16:24 08/06/24 09:57 08/06/24 05:51 08/05/24 17:52 Range/Units Hemoglobin 11.9 L 14.0-18.0 g/dL Hematocrit 34.3 L 42-54 % Ammonia 87 H 11-32 umol/L White Blood Count 2.2 #L 4.8-10.8 K/uL Red Blood Count 3.94 L 4.50-6.20 MIL/uL Mean Corpuscular Volume 83.0 79-99 fL Mean Corpuscular Hemoglobin 28.9 27.0-33.0 pg Mean Corpuscular Hemoglobin Concent 34.9 32.0-36.0 g/dL Red Cell Distribution Width 14.4 11.0-15.5 % Platelet Count 67 L 130-400 K/uL Mean Platelet Volume 10.9 H 7.5-10.5 fL Immature Granulocyte % (Auto) 0.5 0-1 % Neutrophils (%) (Auto) 37.9 L 40.0-77.0 % Lymphocytes (%) (Auto) 40.3 21.0-51.0 % Monocytes (%) (Auto) 12.7 3.0-13.0 % Eosinophils (%) (Auto) 6.8 0.0-8.0 % Basophils (%) (Auto) 1.8 0.0-5.0 % Neutrophils # (Auto) 0.8 L 1.8-7.7 K/uL Lymphocytes # (Auto) 0.9 L 1.0-4.8 K/uL Monocytes # (Auto) 0.3 0.1-1.0 K/uL Eosinophils # (Auto) 0.15 0.00-0.70 K/uL Basophils # (Auto) 0.04 0.00-0.20 K/uL Absolute Immature Granulocyte (auto 0.01 0-1 K/uL Segmented Neutrophils % 49 40-70 % Lymphocytes % (Manual) 42 22-44 % Monocytes % (Manual) 3 2-9 % Eosinophils % (Manual) 5 1-6 % Nucleated Red Blood Cells 0.0 0.0-0.19 % Differential Comment MANUAL DIFFERENTIAL Reactive Lymphocytes 1 H 0-0 % White Cell Morphology Comment Platelet Morphology Comment DECREASED Red Blood Cell Morphology ANISO 1+ Prothrombin Time 13.2 H 9.6-11.6 SEC Prothromb Time International Ratio 1.20 H 0.85-1.15 Activated Partial Thromboplast Time 32.1 26.3-35.5 SEC Sodium Level 146 H 136-145 mmol/L Potassium Level 3.9 3.5-5.1 mmol/L Chloride Level 115 H 101-111 mmol/L Carbon Dioxide Level 24 21-32 mmol/L Blood Urea Nitrogen 8 7-18 mg/dL Creatinine 1.0 0.5-1.3 mg/dL Glomerular Filtration Rate Calc 93 >90 mL/min Random Glucose 84 70-105 mg/dL Total Calcium 7.8 L 8.5-10.1 mg/dL Phosphorus Level 3.5 2.5-4.9 mg/dL Magnesium Level 1.70 L 1.80-2.40 mg/dL Total Bilirubin 1.7 H 0.2-1.0 mg/dL Direct Bilirubin 0.4 H 0.0-0.3 mg/dL Aspartate Amino Transf (AST/SGOT) 44 H 10-37 U/L Alanine Aminotransferase (ALT/SGPT) 25 12-78 U/L Alkaline Phosphatase 166 H 50-136 U/L Total Protein 6.1 6.0-8.3 g/dL Albumin 3.1 L 3.5-5.0 g/dL Lipase 62 16-77 U/L Test 08/05/24 17:50 08/05/24 12:50 Range/Units Urine Color LIGHT-YELLOW YELLOW Urine Appearance CLEAR CLEAR Urine pH 7.5 5.0-8.0 Urine Specific [place] 1.008 1.001-1.031 Urine Protein NEGATIVE NEGATIVE mg/dL Urine Glucose (UA) NEGATIVE NEGATIVE mg/dL Urine Ketones NEGATIVE NEGATIVE mg/dL Urine Occult Blood NEGATIVE NEGATIVE Urine Nitrate NEGATIVE NEGATIVE Urine Bilirubin NEGATIVE NEGATIVE mg/dL Urine Urobilinogen 0.2 0.2-1.0 mg/dL Urine Leukocyte Esterase NEGATIVE NEGATIVE Fern/uL Stool Occult Blood POSITIVE H NEGATIVE Current Medications Medications (Trade) Dose Ordered Sig/Arturo Route PRN Reason Start Time Stop Time Status Last Admin Dose Admin Acetaminophen (TYLenol 650MG SUPPOSITORY) 650 mg Q6H PRN RC MILD PAIN (1-3) 08/06/24 00:00 09/05/24 00:00 Bupropion HCl (WellBUTrin SR 150MG) 150 mg DAILY PO 08/07/24 09:00 09/06/24 08:59 Gabapentin (NEURontin 100 mg CAP) 100 mg BID PO 08/06/24 21:00 09/05/24 20:59 Home Med (Home Medication) ARIPIPRAZOLE 20 MG DAILY PO 08/07/24 09:00 09/06/24 08:59 Hydralazine HCl (APRESOLine 20MG INJ) 10 mg Q6H PRN IV For:SBP above 160;DBP above 90 08/06/24 00:00 09/05/24 00:00 Lactulose (Constulose 20gm/ 30ml Udcup) 20 gm BID PO 08/06/24 10:30 09/05/24 10:29 08/06/24 11:17 20 GM Morphine Sulfate (morPHINE 2MG SYG) 2 mg Q4H PRN IVP SEVERE PAIN (7-10) 08/05/24 23:45 08/12/24 23:44 Octreotide Acetate 1250 mcg/ Sodium Chloride 250 ml @ 0 mls/hr PROTOCOL IV 08/06/24 00:00 09/05/24 00:00 08/06/24 00:59 5 MLS/HR Ondansetron HCl (zoFRAN 4MG INJ) 4 mg Q6H PRN IV NAUSEA/VOMITING 08/06/24 00:00 09/05/24 00:00 Pantoprazole Sodium 80 mg/ Sodium Chloride 100 ml @ 10 mls/hr Q10H IVP 08/05/24 23:30 08/05/24 23:48 DC Pantoprazole Sodium 80 mg/ Sodium Chloride 100 ml @ 10 mls/hr Q10H IVP 08/06/24 00:00 09/05/24 00:00 08/06/24 11:17 10 MLS/HR Rifaximin (Xifaxan) 550 mg BID PO 08/06/24 21:00 09/05/24 20:59 Sodium Chloride 1,000 ml @ 120 mls/hr Q8H20M IV 08/06/24 00:00 08/07/24 12:00 08/06/24 00:41 50 MLS/HR Trazodone HCl (DesyREL/OlepTRO) 50 mg HS PO 08/06/24 21:00 09/05/24 20:59 DIAGNOSTICS / RADIOLOGY: [ ] ASSESSMENT: GI Bleed Hypertension Liver Cirrhosis Depression and anxiety PLAN: Continue IV protonix Continue IV octreotide Start Lactulose 20g BID Start Rifaximin 550mg BID Trend H/H, transfuse if < 7.0 Continue NS @ 120 cc/hr GI consulted, appreciate recommendations Disposition: Pending GI recommendations, resolution of GI bleed J CARLOS DAMON MD Aug 06, 2024 17:35
[2024-08-06] MEDS: trAZOdone HCL 50 MG TAB PO SCH (21:20)
[2024-08-06] MEDS: RIFAXIMIN 550 MG TABLET PO SCH (21:20)
[2024-08-06] MEDS: GABApentin 100 MG CAPSULE PO SCH (21:20)
[2024-08-06 21:48] LABS: HEMATOCRIT 33.4 % (42-54)
[2024-08-07] VITALS (8 sets, daily range): BP systolic 102–124; BP diastolic 55–72; PULSE 67–78; RESP 16–18; TEMP 97.3–98.2; O2SAT 97–98
[2024-08-07 06:10] LABS: BASOPHILS # (AUTO) 0.03 K/uL (0.00-0.20); BASOPHILS % (AUTO) 1.7 % (0.0-5.0); EOSINOPHILS # (AUTO) 0.14 K/uL (0.00-0.70); EOSINOPHILS % (AUTO) 7.7 % (0.0-8.0); HEMATOCRIT 33.1 % (42-54); LYMPHOCYTES # (AUTO) 0.8 K/uL (1.0-4.8); MEAN CORPUSCULAR HEMOGLOBIN 29.3 pg (27.0-33.0); MEAN CORPUSCULAR HGB CONC 34.7 g/dL (32.0-36.0); MEAN CORPUSCULAR VOLUME 84.4 fL (79-99); MONOCYTES # (AUTO) 0.3 K/uL (0.1-1.0); MONOCYTES % (AUTO) 13.8 % (3.0-13.0); NEUTROPHILS # (AUTO) 0.6 K/uL (1.8-7.7); NEUTROPHILS % (AUTO) 34.8 % (40.0-77.0); PLATELET COUNT (AUTO) 64 K/uL (130-400); RED BLOOD CELL COUNT(AUTO) 3.92 MIL/uL (4.50-6.20); RED CELL DISTRIBUTION WIDTH 14.5 % (11.0-15.5); WHITE BLOOD COUNT (AUTO) 1.8 K/uL (4.8-10.8)
[2024-08-07 06:22] LABS: ALBUMIN 2.5 g/dL (3.5-5.0); BILIRUBIN,TOTAL 2.3 mg/dL (0.2-1.0); CREATININE 1.2 mg/dL (0.5-1.3); MAGNESIUM 1.6 mg/dL (1.80-2.40); PHOSPHORUS 3.7 mg/dL (2.5-4.9); POTASSIUM 3.8 mmol/L (3.5-5.1); TOTAL PROTEIN, SERUM 4.8 g/dL (6.0-8.3)
[2024-08-07] MEDS: ARIPIPRAZOLE 20 MG PO SCH (09:00)
[2024-08-07] MEDS: buPROPion HCL 150 MG TABLET.SA PO SCH (09:57)
--- NOTE | 2024-08-07 11:02 | NUR ---
RE-PAGED DR GRIFFIN REGARDING NEW CONSULT. PENDING RESPONSE BACK.
--- NOTE | 2024-08-07 16:44 | PN ---
[facility] PROGRESS NOTE Date of Service: Aug 07, 2024 Time of Service: 16:42 SUBJECTIVE: 08/06 patient seen at bedside, no acute events overnight. Patient has not had bloody bowel movement since admission. Hemoglobin stable at 11.4, sodium increased from 143 up to 146, ammonia elevated at 59, we will start patient on lactulose 20 g b.i.d. and titrate to two bowel movements per day. GI has been consulted, recommendations still pending, we will follow up. 08/07 patient seen at bedside, no reported bloody bowel movements, hemoglobin stable at 11.5. GI recommendations still pending, nursing pace multiple times, we will follow up with their recommendations. Possible EGD tomorrow. REVIEW OF SYSTEMS 12 point review of systems negative unless noted in HPI PHYSICAL EXAM GENERAL APPEARANCE: The patient is awake, alert, and oriented, in no acute cardiopulmonary distress. NEUROLOGICAL: Cranial nerves II-XII grossly intact. Motor is 5/5 in bilateral upper and lower extremities proximal to distal. No sensory deficits. HEENT: Face is symmetric. Pupils are equal and reactive. Extraocular movements are intact. NECK: Supple. No JVD. No thyromegaly. No submental, submandibular, pre- /postauricular, occipital or supraclavicular lymphadenopathy. CHEST: Normal chest expansion. No Telemetry. LUNGS: Absence of any rales, rhonchi or any wheezing. CARDIOVASCULAR: Regular. S1 and S2 normal. No appreciable rubs, murmurs or gallops. ABDOMEN: Soft, nontender, and nondistended. There is no rebound, voluntary guarding, or rigidity. : Deferred. No Conley. EXTREMITIES: Non-edematous and not cyanotic. No clubbing. Good capillary refill. SKIN: No skin breakdown. Vital Signs (last 8hr) Date Time Temp Pulse Resp B/P (MAP) Pulse Ox O2 Delivery O2 Flow Rate FiO2 08/07/24 16:00 98.2 74 18 105/55 95 Room Air 08/07/24 12:00 97.9 67 18 124/72 96 Room Air 08/07/24 09:00 97 Room Air* 0 21 LABS: Laboratory: Test 08/07/24 06:03 08/06/24 09:57 08/06/24 05:51 08/05/24 17:52 Range/Units White Blood Count 1.8 L 4.8-10.8 K/uL Red Blood Count 3.92 L 4.50-6.20 MIL/uL Hemoglobin 11.5 L 14.0-18.0 g/dL Hematocrit 33.1 L 42-54 % Mean Corpuscular Volume 84.4 79-99 fL Mean Corpuscular Hemoglobin 29.3 27.0-33.0 pg Mean Corpuscular Hemoglobin Concent 34.7 32.0-36.0 g/dL Red Cell Distribution Width 14.5 11.0-15.5 % Platelet Count 64 L 130-400 K/uL Mean Platelet Volume 10.3 7.5-10.5 fL Immature Granulocyte % (Auto) 0.0 0-1 % Neutrophils (%) (Auto) 34.8 L 40.0-77.0 % Lymphocytes (%) (Auto) 42.0 21.0-51.0 % Monocytes (%) (Auto) 13.8 H 3.0-13.0 % Eosinophils (%) (Auto) 7.7 0.0-8.0 % Basophils (%) (Auto) 1.7 0.0-5.0 % Neutrophils # (Auto) 0.6 L 1.8-7.7 K/uL Lymphocytes # (Auto) 0.8 L 1.0-4.8 K/uL Monocytes # (Auto) 0.3 0.1-1.0 K/uL Eosinophils # (Auto) 0.14 0.00-0.70 K/uL Basophils # (Auto) 0.03 0.00-0.20 K/uL Absolute Immature Granulocyte (auto 0.00 0-1 K/uL Nucleated Red Blood Cells 0.0 0.0-0.19 % Sodium Level 145 136-145 mmol/L Potassium Level 3.8 3.5-5.1 mmol/L Chloride Level 113 H 101-111 mmol/L Carbon Dioxide Level 28 21-32 mmol/L Blood Urea Nitrogen 7 7-18 mg/dL Creatinine 1.2 0.5-1.3 mg/dL Glomerular Filtration Rate Calc 75 >90 mL/min Random Glucose 100 70-105 mg/dL Total Calcium 7.5 L 8.5-10.1 mg/dL Phosphorus Level 3.7 2.5-4.9 mg/dL Magnesium Level 1.60 L 1.80-2.40 mg/dL Total Bilirubin 2.3 H 0.2-1.0 mg/dL Aspartate Amino Transf (AST/SGOT) 44 H 10-37 U/L Alanine Aminotransferase (ALT/SGPT) 22 12-78 U/L Alkaline Phosphatase 91 50-136 U/L Total Protein 4.8 L 6.0-8.3 g/dL Albumin 2.5 L 3.5-5.0 g/dL Ammonia 87 H 11-32 umol/L Segmented Neutrophils % 49 40-70 % Lymphocytes % (Manual) 42 22-44 % Monocytes % (Manual) 3 2-9 % Eosinophils % (Manual) 5 1-6 % Differential Comment MANUAL DIFFERENTIAL Reactive Lymphocytes 1 H 0-0 % White Cell Morphology Comment Platelet Morphology Comment DECREASED Red Blood Cell Morphology ANISO 1+ Prothrombin Time 13.2 H 9.6-11.6 SEC Prothromb Time International Ratio 1.20 H 0.85-1.15 Activated Partial Thromboplast Time 32.1 26.3-35.5 SEC Direct Bilirubin 0.4 H 0.0-0.3 mg/dL Lipase 62 16-77 U/L Test 08/05/24 17:50 Range/Units Urine Color LIGHT-YELLOW YELLOW Urine Appearance CLEAR CLEAR Urine pH 7.5 5.0-8.0 Urine Specific [place] 1.008 1.001-1.031 Urine Protein NEGATIVE NEGATIVE mg/dL Urine Glucose (UA) NEGATIVE NEGATIVE mg/dL Urine Ketones NEGATIVE NEGATIVE mg/dL Urine Occult Blood NEGATIVE NEGATIVE Urine Nitrate NEGATIVE NEGATIVE Urine Bilirubin NEGATIVE NEGATIVE mg/dL Urine Urobilinogen 0.2 0.2-1.0 mg/dL Urine Leukocyte Esterase NEGATIVE NEGATIVE Fern/uL Current Medications Medications (Trade) Dose Ordered Sig/Arturo Route PRN Reason Start Time Stop Time Status Last Admin Dose Admin Acetaminophen (TYLenol 650MG SUPPOSITORY) 650 mg Q6H PRN RC MILD PAIN (1-3) 08/06/24 00:00 09/05/24 00:00 Bupropion HCl (WellBUTrin SR 150MG) 150 mg DAILY PO 08/07/24 09:00 09/06/24 08:59 08/07/24 09:57 150 MG Gabapentin (NEURontin 100 mg CAP) 100 mg BID PO 08/06/24 21:00 09/05/24 20:59 08/07/24 09:57 100 MG Home Med (Home Medication) ARIPIPRAZOLE 20 MG DAILY PO 08/07/24 09:00 09/06/24 08:59 Hydralazine HCl (APRESOLine 20MG INJ) 10 mg Q6H PRN IV For:SBP above 160;DBP above 90 08/06/24 00:00 09/05/24 00:00 Lactulose (Constulose 20gm/ 30ml Udcup) 20 gm BID PO 08/06/24 10:30 09/05/24 10:29 08/07/24 09:57 20 GM Morphine Sulfate (morPHINE 2MG SYG) 2 mg Q4H PRN IVP SEVERE PAIN (7-10) 08/05/24 23:45 08/12/24 23:44 Octreotide Acetate 1250 mcg/ Sodium Chloride 250 ml @ 0 mls/hr PROTOCOL IV 08/06/24 00:00 09/05/24 00:00 08/06/24 00:59 5 MLS/HR Ondansetron HCl (zoFRAN 4MG INJ) 4 mg Q6H PRN IV NAUSEA/VOMITING 08/06/24 00:00 09/05/24 00:00 Pantoprazole Sodium 80 mg/ Sodium Chloride 100 ml @ 10 mls/hr Q10H IVP 08/05/24 23:30 08/05/24 23:48 DC Pantoprazole Sodium 80 mg/ Sodium Chloride 100 ml @ 10 mls/hr Q10H IVP 08/06/24 00:00 09/05/24 00:00 08/07/24 09:57 10 MLS/HR Rifaximin (Xifaxan) 550 mg BID PO 08/06/24 21:00 09/05/24 20:59 08/07/24 09:58 550 MG Sodium Chloride 1,000 ml @ 120 mls/hr Q8H20M IV 08/06/24 00:00 08/07/24 12:00 DC 08/07/24 10:07 120 MLS/HR Trazodone HCl (DesyREL/OlepTRO) 50 mg HS PO 08/06/24 21:00 09/05/24 20:59 08/06/24 21:20 50 MG DIAGNOSTICS / RADIOLOGY: [ ] ASSESSMENT: GI Bleed Hypertension Liver Cirrhosis Depression and anxiety PLAN: Continue IV protonix Continue IV octreotide Start Lactulose 20g BID Start Rifaximin 550mg BID Trend H/H, transfuse if < 7.0 Continue NS @ 120 cc/hr GI consulted, appreciate recommendations Disposition: Pending GI recommendations, resolution of GI bleed, possible EGD J CARLOS DAMON MD Aug 07, 2024 16:44
[2024-08-08] VITALS (7 sets, daily range): BP systolic 104–132; BP diastolic 54–85; PULSE 66–77; RESP 16–20; TEMP 97.8–98.4; O2SAT 97–98
[2024-08-08 04:16] LABS: BASOPHILS # (AUTO) 0.02 K/uL (0.00-0.20); BASOPHILS % (AUTO) 1.1 % (0.0-5.0); EOSINOPHILS # (AUTO) 0.13 K/uL (0.00-0.70); EOSINOPHILS % (AUTO) 6.8 % (0.0-8.0); HEMATOCRIT 32.9 % (42-54); LYMPHOCYTES # (AUTO) 0.6 K/uL (1.0-4.8); LYMPHOCYTES % (AUTO) 28.9 % (21.0-51.0); MEAN CORPUSCULAR VOLUME 83.1 fL (79-99); MONOCYTES # (AUTO) 0.3 K/uL (0.1-1.0); MONOCYTES % (AUTO) 16.8 % (3.0-13.0); NEUTROPHILS # (AUTO) 0.9 K/uL (1.8-7.7); NEUTROPHILS % (AUTO) 46.4 % (40.0-77.0); PLATELET COUNT (AUTO) 58 K/uL (130-400); RED BLOOD CELL COUNT(AUTO) 3.96 MIL/uL (4.50-6.20); RED CELL DISTRIBUTION WIDTH 14.2 % (11.0-15.5); WHITE BLOOD COUNT (AUTO) 1.9 K/uL (4.8-10.8)
[2024-08-08 04:34] LABS: ALBUMIN 2.5 g/dL (3.5-5.0); CREATININE 1.2 mg/dL (0.5-1.3); POTASSIUM 3.6 mmol/L (3.5-5.1); TOTAL PROTEIN, SERUM 4.9 g/dL (6.0-8.3)
--- NOTE | 2024-08-08 12:51 | PN ---
[facility] PROGRESS NOTE Date of Service: Aug 08, 2024 Time of Service: 11:30 AM SUBJECTIVE: 08/06 patient seen at bedside, no acute events overnight. Patient has not had bloody bowel movement since admission. Hemoglobin stable at 11.4, sodium increased from 143 up to 146, ammonia elevated at 59, we will start patient on lactulose 20 g b.i.d. and titrate to two bowel movements per day. GI has been consulted, recommendations still pending, we will follow up. 08/07 patient seen at bedside, no reported bloody bowel movements, hemoglobin stable at 11.5. GI recommendations still pending, nursing pace multiple times, we will follow up with their recommendations. Possible EGD tomorrow. 08/08- The patient was seen at bedside. He noticed blood in the stool last , Thursday, and Thursday. He had a greenish colored bowel movement yesterday, but did not notice any blood. He denies any lightheadedness, dizziness, blurry vision or any other symptoms. The patient was put on a clear liquid diet, and now is NPO. He has been complaining about hunger and wants to eat something. Labs: Platelets dropped to the 58 from 64, WBC went down to 1.9 from 1.8, hemoglobin 11.5, total protein 4.9, albumin 2.5. GI was consulted, and per nurse the patient will be started with a colon prep today and will be going for colonoscopy tomorrow for further evaluation of GI bleed. REVIEW OF SYSTEMS 12 point review of systems negative unless noted in HPI PHYSICAL EXAM GENERAL APPEARANCE: The patient is awake, alert, and oriented, in no acute cardiopulmonary distress. NEUROLOGICAL: Cranial nerves II-XII grossly intact. Motor is 5/5 in bilateral upper and lower extremities proximal to distal. No sensory deficits. HEENT: Face is symmetric. Pupils are equal and reactive. Extraocular movements are intact. NECK: Supple. No JVD. No thyromegaly. No submental, submandibular, pre-/postauricular, occipital or supraclavicular lymphadenopathy. CHEST: Normal chest expansion. No Telemetry. LUNGS: Absence of any rales, rhonchi or any wheezing. CARDIOVASCULAR: Regular. S1 and S2 normal. No appreciable rubs, murmurs or gallops. ABDOMEN: Soft, nontender, and nondistended. There is no rebound, voluntary guarding, or rigidity. : Deferred. No Conley. EXTREMITIES: Non-edematous and not cyanotic. No clubbing. Good capillary refill. SKIN: No skin breakdown. Vital Signs (last 8hr) Date Time Temp Pulse Resp B/P (MAP) Pulse Ox O2 Delivery O2 Flow Rate FiO2 08/08/24 12:00 98.4 66 19 106/61 95 Room Air 08/08/24 08:00 98.4 70 16 117/70 97 Room Air LABS: Laboratory: Test 08/08/24 03:52 08/07/24 06:03 Range/Units White Blood Count 1.9 L 4.8-10.8 K/uL Red Blood Count 3.96 L 4.50-6.20 MIL/uL Hemoglobin 11.5 L 14.0-18.0 g/dL Hematocrit 32.9 L 42-54 % Mean Corpuscular Volume 83.1 79-99 fL Mean Corpuscular Hemoglobin 29.0 27.0-33.0 pg Mean Corpuscular Hemoglobin Concent 35.0 32.0-36.0 g/dL Red Cell Distribution Width 14.2 11.0-15.5 % Platelet Count 58 L 130-400 K/uL Mean Platelet Volume 10.9 H 7.5-10.5 fL Immature Granulocyte % (Auto) 0.0 0-1 % Neutrophils (%) (Auto) 46.4 40.0-77.0 % Lymphocytes (%) (Auto) 28.9 21.0-51.0 % Monocytes (%) (Auto) 16.8 H 3.0-13.0 % Eosinophils (%) (Auto) 6.8 0.0-8.0 % Basophils (%) (Auto) 1.1 0.0-5.0 % Neutrophils # (Auto) 0.9 L 1.8-7.7 K/uL Lymphocytes # (Auto) 0.6 L 1.0-4.8 K/uL Monocytes # (Auto) 0.3 0.1-1.0 K/uL Eosinophils # (Auto) 0.13 0.00-0.70 K/uL Basophils # (Auto) 0.02 0.00-0.20 K/uL Absolute Immature Granulocyte (auto 0.00 0-1 K/uL Nucleated Red Blood Cells 0.0 0.0-0.19 % Sodium Level 144 136-145 mmol/L Potassium Level 3.6 3.5-5.1 mmol/L Chloride Level 111 101-111 mmol/L Carbon Dioxide Level 28 21-32 mmol/L Blood Urea Nitrogen 6 L 7-18 mg/dL Creatinine 1.2 0.5-1.3 mg/dL Glomerular Filtration Rate Calc 75 >90 mL/min Random Glucose 84 70-105 mg/dL Total Calcium 7.4 L 8.5-10.1 mg/dL Total Bilirubin 2.0 H 0.2-1.0 mg/dL Aspartate Amino Transf (AST/SGOT) 54 H 10-37 U/L Alanine Aminotransferase (ALT/SGPT) 26 12-78 U/L Alkaline Phosphatase 93 50-136 U/L Total Protein 4.9 L 6.0-8.3 g/dL Albumin 2.5 L 3.5-5.0 g/dL Phosphorus Level 3.7 2.5-4.9 mg/dL Magnesium Level 1.60 L 1.80-2.40 mg/dL Current Medications Medications (Trade) Dose Ordered Sig/Arturo Route PRN Reason Start Time Stop Time Status Last Admin Dose Admin Acetaminophen (TYLenol 650MG SUPPOSITORY) 650 mg Q6H PRN RC MILD PAIN (1-3) 08/06/24 00:00 09/05/24 00:00 Bupropion HCl (WellBUTrin SR 150MG) 150 mg DAILY PO 08/07/24 09:00 09/06/24 08:59 08/07/24 09:57 150 MG Gabapentin (NEURontin 100 mg CAP) 100 mg BID PO 08/06/24 21:00 09/05/24 20:59 08/07/24 21:09 100 MG Home Med (Home Medication) ARIPIPRAZOLE 20 MG DAILY PO 08/07/24 09:00 09/06/24 08:59 Hydralazine HCl (APRESOLine 20MG INJ) 10 mg Q6H PRN IV For:SBP above 160;DBP above 90 08/06/24 00:00 09/05/24 00:00 Lactulose (Constulose 20gm/ 30ml Udcup) 20 gm BID PO 08/06/24 10:30 09/05/24 10:29 08/07/24 21:09 20 GM Morphine Sulfate (morPHINE 2MG SYG) 2 mg Q4H PRN IVP SEVERE PAIN (7-10) 08/05/24 23:45 08/12/24 23:44 Octreotide Acetate 1250 mcg/ Sodium Chloride 250 ml @ 0 mls/hr PROTOCOL IV 08/06/24 00:00 09/05/24 00:00 08/06/24 00:59 5 MLS/HR Ondansetron HCl (zoFRAN 4MG INJ) 4 mg Q6H PRN IV NAUSEA/VOMITING 08/06/24 00:00 09/05/24 00:00 Pantoprazole Sodium 80 mg/ Sodium Chloride 100 ml @ 10 mls/hr Q10H IVP 08/05/24 23:30 08/05/24 23:48 DC Pantoprazole Sodium 80 mg/ Sodium Chloride 100 ml @ 10 mls/hr Q10H IVP 08/06/24 00:00 09/05/24 00:00 08/07/24 18:32 10 MLS/HR Rifaximin (Xifaxan) 550 mg BID PO 08/06/24 21:00 09/05/24 20:59 08/07/24 21:09 550 MG Sodium Chloride 1,000 ml @ 120 mls/hr Q8H20M IV 08/06/24 00:00 08/07/24 12:00 DC 08/07/24 10:07 120 MLS/HR Trazodone HCl (DesyREL/OlepTRO) 50 mg HS PO 08/06/24 21:00 09/05/24 20:59 08/07/24 21:09 50 MG DIAGNOSTICS / RADIOLOGY: [place] [address] IMAGING REPORT Signed PATIENT: CARMEN VALENZUELA MR#: [id number] : 1975 SEX: M AGE: 49 LOCATION: [facility] ORDER 49 STATUS: REG ER REPORT#: [id number] SERVICE 48 REASON: Abdominal Pain s/p colonoscopy egd ORDERING PHYSICIAN: SAMY TELLO PROCEDURE: ABD PEL W - CT ABDOMEN/PELVIS W/CONTRAST CT ABDOMEN/PELVIS W/CONTRAST HISTORY: Abdominal Pain s/p colonoscopy egd TECHNIQUE: CT ABDOMEN/PELVIS W/CONTRAST Omnipaque contrast was used. Oral contrast was not given. Coronal and sagittal reformats were obtained. CT was performed with one or more of the following dose reduction techniques: Automated exposure control, adjustment of the mA and/or kV according to the patient's size, or use of the iterative reconstruction technique. Comparison: None. FINDINGS: No pulmonary consolidation or pleural effusion is seen. Cirrhotic morphology of the liver is seen with splenomegaly and persistent rise in the upper abdomen. The spleen measures 17.3 cm. Patent TIPS stent is noted. There is no calcified gallstone. Nonobstructing 4 mm left intrarenal calculus is seen in the lower pole. The spleen, pancreas, and adrenal glands are within normal limits. Distended urinary bladder. Correlate for urinary retention. No bowel obstruction is seen. Normal appendix. Reproductive organs are grossly within normal limits for patient's age. No bowel obstruction identified. Appendix is normal in caliber. Degenerative changes of the spine. Visualized aorta is normal in caliber. IMPRESSION: 1. Distended urinary bladder. Correlate for urinary retention. 2. No bowel obstruction is seen. Normal appendix. 3. Cirrhosis with portal hypertension and patent TIPS stent. 4. Additional findings as described above. . DICTATED BY: PAULA BANDA MD DATE: 08/05/242108 ELECTRONICALLY SIGNED BY: PAULA BANDA MD DATE: 08/05/242114 ASSESSMENT: GI Bleed, POA Hypertension Liver Cirrhosis Depression and anxiety PLAN: GI Bleed, POA * Continue IV protonix 10cc/hour * Continue IV octreotide per protocol * Continue Lactulose 20g BID * Continue Rifaximin 550mg BID * Trend H/H, transfuse if < 7.0 * Continue NS @ 120 cc/hr GI was consulted. Per nurse, the patient is scheduled for colonoscopy tomorrow and will be starting colon prep tonight. Disposition: Possible colonoscopy tomorrow in a.m. ATTESTATION BY PHYSICIAN I have seen and examined the patient. I reviewed the documentation, medical decision making, and treatment plan as noted by the resident provider above. I agree with the findings and plan of care. Evelia Palmer MD, MANALI MD Aug 08, 2024 12:51
[2024-08-08] MEDS: PEG 3350/NA SULF,BICARB,CL/KCL 4000 ML SOLN PO SCH (17:47)
--- NOTE | 2024-08-08 21:50 | NUR ---
PATIENT CONTINUING WITH GOLYTELY PREP. ENCOURAGE TO CONTINUE DRINKING UNTIL FINISHED.
--- NOTE | 2024-08-08 23:55 | NUR ---
PATIENT HAS AOBUT 1/3 LEFT ON BOTTLE. ENCOURAGE TO CONTINUE DRINKING TO FINISH ALL OF IT. SAY HIS BOWEL MOVEMENTS ARE ALL LIQUID. ASKED HIM TO CALL ME WHEN NEXT BM TO SEE MYSELF.
[2024-08-09] VITALS: BP 119/72; PULSE 67; RESP 16; TEMP 98
[2024-08-09 04:00] VITALS: BP 97/55; PULSE 69; RESP 16; TEMP 98
[2024-08-09 04:03] LABS: BASOPHILS # (AUTO) 0.03 K/uL (0.00-0.20); BASOPHILS % (AUTO) 1.4 % (0.0-5.0); EOSINOPHILS # (AUTO) 0.18 K/uL (0.00-0.70); EOSINOPHILS % (AUTO) 8.3 % (0.0-8.0); HEMATOCRIT 33.1 % (42-54); LYMPHOCYTES # (AUTO) 0.8 K/uL (1.0-4.8); LYMPHOCYTES % (AUTO) 38.7 % (21.0-51.0); MEAN CORPUSCULAR HEMOGLOBIN 29.4 pg (27.0-33.0); MEAN CORPUSCULAR HGB CONC 35.3 g/dL (32.0-36.0); MEAN CORPUSCULAR VOLUME 83.2 fL (79-99); MONOCYTES # (AUTO) 0.3 K/uL (0.1-1.0); MONOCYTES % (AUTO) 13.8 % (3.0-13.0); NEUTROPHILS # (AUTO) 0.8 K/uL (1.8-7.7); NEUTROPHILS % (AUTO) 37.8 % (40.0-77.0); PLATELET COUNT (AUTO) 67 K/uL (130-400); RED BLOOD CELL COUNT(AUTO) 3.98 MIL/uL (4.50-6.20); RED CELL DISTRIBUTION WIDTH 14.4 % (11.0-15.5); WHITE BLOOD COUNT (AUTO) 2.2 K/uL (4.8-10.8)
[2024-08-09 04:20] LABS: ALBUMIN 2.5 g/dL (3.5-5.0); BILIRUBIN,TOTAL 2.1 mg/dL (0.2-1.0); CREATININE 1.1 mg/dL (0.5-1.3); POTASSIUM 3.5 mmol/L (3.5-5.1)
--- NOTE | 2024-08-09 07:05 | NUR ---
RECEIVED CALL FROM KELLE FROM ENDOSCOPY INQUIRING ABOUT PATIENT. NOTIFIED HER THAT PATIENT DID NOT DRINK THE ENTIRE PREP. HE LEFT ABOUT 1/3-1/4 IN BOTTLE. HE REPORTS THAT LAST BMS ( HE FORGOT TO CALL TO SHOW ME HIS BM) THAT IS WAS ALL WATERY LIQUID YELLOW.
[2024-08-09 08:14] VITALS: BP 140/70; PULSE 68; RESP 19; TEMP 97.9
[2024-08-09 11:57] VITALS: BP 126/77; PULSE 67; RESP 18; TEMP 98.1
--- NOTE | 2024-08-09 13:06 | PN ---
[facility] PROGRESS NOTE Date of Service: Aug 09, 2024 Time of Service: 13:06 SUBJECTIVE: 08/06 patient seen at bedside, no acute events overnight. Patient has not had bloody bowel movement since admission. Hemoglobin stable at 11.4, sodium increased from 143 up to 146, ammonia elevated at 59, we will start patient on lactulose 20 g b.i.d. and titrate to two bowel movements per day. GI has been consulted, recommendations still pending, we will follow up. 08/07 patient seen at bedside, no reported bloody bowel movements, hemoglobin stable at 11.5. GI recommendations still pending, nursing pace multiple times, we will follow up with their recommendations. Possible EGD tomorrow. 08/08- The patient was seen at bedside. He noticed blood in the stool last , Thursday, and Thursday. He had a greenish colored bowel movement yesterday, but did not notice any blood. He denies any lightheadedness, dizziness, blurry vision or any other symptoms. The patient was put on a clear liquid diet, and now is NPO. He has been complaining about hunger and wants to eat something. Labs: Platelets dropped to the 58 from 64, WBC went down to 1.9 from 1.8, hemoglobin 11.5, total protein 4.9, albumin 2.5. GI was consulted, and per nurse the patient will be started with a colon prep today and will be going for colonoscopy tomorrow for further evaluation of GI bleed. REVIEW OF SYSTEMS 12 point review of systems negative unless noted in HPI PHYSICAL EXAM GENERAL APPEARANCE: The patient is awake, alert, and oriented, in no acute cardiopulmonary distress. NEUROLOGICAL: Cranial nerves II-XII grossly intact. Motor is 5/5 in bilateral upper and lower extremities proximal to distal. No sensory deficits. HEENT: Face is symmetric. Pupils are equal and reactive. Extraocular movements are intact. NECK: Supple. No JVD. No thyromegaly. No submental, submandibular, pre-/postauricular, occipital or supraclavicular lymphadenopathy. CHEST: Normal chest expansion. No Telemetry. LUNGS: Absence of any rales, rhonchi or any wheezing. CARDIOVASCULAR: Regular. S1 and S2 normal. No appreciable rubs, murmurs or gallops. ABDOMEN: Soft, nontender, and nondistended. There is no rebound, voluntary guarding, or rigidity. : Deferred. No Conley. EXTREMITIES: Non-edematous and not cyanotic. No clubbing. Good capillary refill. SKIN: No skin breakdown. Vital Signs (last 8hr) Date Time Temp Pulse Resp B/P (MAP) Pulse Ox O2 Delivery O2 Flow Rate FiO2 08/09/24 11:57 98.1 67 18 126/77 100 Room Air 21 08/09/24 08:14 97.9 68 19 140/70 Room Air 21 LABS: Laboratory: Test 08/09/24 03:42 Range/Units White Blood Count 2.2 L 4.8-10.8 K/uL Red Blood Count 3.98 L 4.50-6.20 MIL/uL Hemoglobin 11.7 L 14.0-18.0 g/dL Hematocrit 33.1 L 42-54 % Mean Corpuscular Volume 83.2 79-99 fL Mean Corpuscular Hemoglobin 29.4 27.0-33.0 pg Mean Corpuscular Hemoglobin Concent 35.3 32.0-36.0 g/dL Red Cell Distribution Width 14.4 11.0-15.5 % Platelet Count 67 L 130-400 K/uL Mean Platelet Volume 10.9 H 7.5-10.5 fL Immature Granulocyte % (Auto) 0.0 0-1 % Neutrophils (%) (Auto) 37.8 L 40.0-77.0 % Lymphocytes (%) (Auto) 38.7 21.0-51.0 % Monocytes (%) (Auto) 13.8 H 3.0-13.0 % Eosinophils (%) (Auto) 8.3 H 0.0-8.0 % Basophils (%) (Auto) 1.4 0.0-5.0 % Neutrophils # (Auto) 0.8 L 1.8-7.7 K/uL Lymphocytes # (Auto) 0.8 L 1.0-4.8 K/uL Monocytes # (Auto) 0.3 0.1-1.0 K/uL Eosinophils # (Auto) 0.18 0.00-0.70 K/uL Basophils # (Auto) 0.03 0.00-0.20 K/uL Absolute Immature Granulocyte (auto 0.00 0-1 K/uL Nucleated Red Blood Cells 0.0 0.0-0.19 % Sodium Level 143 136-145 mmol/L Potassium Level 3.5 3.5-5.1 mmol/L Chloride Level 109 101-111 mmol/L Carbon Dioxide Level 28 21-32 mmol/L Blood Urea Nitrogen 6 L 7-18 mg/dL Creatinine 1.1 0.5-1.3 mg/dL Glomerular Filtration Rate Calc 83 >90 mL/min Random Glucose 95 70-105 mg/dL Total Calcium 7.7 L 8.5-10.1 mg/dL Total Bilirubin 2.1 H 0.2-1.0 mg/dL Aspartate Amino Transf (AST/SGOT) 41 H 10-37 U/L Alanine Aminotransferase (ALT/SGPT) 23 12-78 U/L Alkaline Phosphatase 85 50-136 U/L Total Protein 5.0 L 6.0-8.3 g/dL Albumin 2.5 L 3.5-5.0 g/dL Current Medications Medications (Trade) Dose Ordered Sig/Arturo Route PRN Reason Start Time Stop Time Status Last Admin Dose Admin Acetaminophen (TYLenol 650MG SUPPOSITORY) 650 mg Q6H PRN RC MILD PAIN (1-3) 08/06/24 00:00 09/05/24 00:00 Bupropion HCl (WellBUTrin SR 150MG) 150 mg DAILY PO 08/07/24 09:00 09/06/24 08:59 08/08/24 13:24 150 MG Gabapentin (NEURontin 100 mg CAP) 100 mg BID PO 08/06/24 21:00 09/05/24 20:59 08/08/24 23:59 100 MG Home Med (Home Medication) ARIPIPRAZOLE 20 MG DAILY PO 08/07/24 09:00 09/06/24 08:59 Hydralazine HCl (APRESOLine 20MG INJ) 10 mg Q6H PRN IV For:SBP above 160;DBP above 90 08/06/24 00:00 09/05/24 00:00 Lactulose (Constulose 20gm/ 30ml Udcup) 20 gm BID PO 08/06/24 10:30 09/05/24 10:29 08/08/24 23:59 20 GM Morphine Sulfate (morPHINE 2MG SYG) 2 mg Q4H PRN IVP SEVERE PAIN (7-10) 08/05/24 23:45 1/3/25 23:44 Octreotide Acetate 1250 mcg/ Sodium Chloride 250 ml @ 0 mls/hr PROTOCOL IV 08/06/24 00:00 09/05/24 00:00 08/08/24 17:56 5 MLS/HR Ondansetron HCl (zoFRAN 4MG INJ) 4 mg Q6H PRN IV NAUSEA/VOMITING 08/06/24 00:00 09/05/24 00:00 Pantoprazole Sodium 80 mg/ Sodium Chloride 100 ml @ 10 mls/hr Q10H IVP 08/05/24 23:30 08/05/24 23:48 DC Pantoprazole Sodium 80 mg/ Sodium Chloride 100 ml @ 10 mls/hr Q10H IVP 08/06/24 00:00 09/05/24 00:00 08/09/24 04:19 10 MLS/HR Polyethylene Glycol/ Electrolytes (Golytely/Colyte Soln) 4,000 ml ONCE PO 08/08/24 17:00 08/09/24 08:00 DC 08/08/24 17:47 4,000 ML Rifaximin (Xifaxan) 550 mg BID PO 08/06/24 21:00 09/05/24 20:59 08/08/24 23:59 550 MG Sodium Chloride 1,000 ml @ 120 mls/hr Q8H20M IV 08/06/24 00:00 08/07/24 12:00 DC 08/07/24 10:07 120 MLS/HR Trazodone HCl (DesyREL/OlepTRO) 50 mg HS PO 08/06/24 21:00 09/05/24 20:59 08/07/24 21:09 50 MG DIAGNOSTICS / RADIOLOGY: [ ] ASSESSMENT: GI Bleed, POA Hypertension Liver Cirrhosis Depression and anxiety PLAN: GI Bleed, POA * Continue IV protonix 10cc/hour * Continue IV octreotide per protocol * Continue Lactulose 20g BID * Continue Rifaximin 550mg BID * Trend H/H, transfuse if < 7.0 * Continue NS @ 120 cc/hr GI was consulted. Per nurse, the patient is scheduled for colonoscopy tomorrow and will be starting colon prep tonight. Disposition: Possible colonoscopy tomorrow in a.m. TOMASZ QUEZADA MD Aug 09, 2024 13:06
[2024-08-09 16:00] VITALS: BP 142/76; PULSE 74; RESP 19; TEMP 98.1
--- NOTE | 2024-08-09 17:44 | DS ---
Discharge Summary Hospital Course Summary: Mr. Valenzuela is a 49-year-old male with the past medical history of Hypertension, liver cirrhosis, "childhood leukemia", depression, anxiety, bipolar disorder presented to Emergency department at [facility] on 08/06/24 with the chief complaint of bloody stools. Symptoms onset was 08/04/24 at 7:30 p.m.. Preceding event was going home from [facility] where he had a colonoscopy and endoscopy. EGD report showed portal hypertension, Gastritis and colonoscopy report showed multiple polyps, pathology results were pending. Patient also reported associated lightheadedness while defecating. [facility] department if notices blood in the stool and therefore came to ED. In emergency department, laboratory findings were WBCs 3.3, platelets 87, stool positive for occult blood. Emergency room physician recommended that patient be admitted with a diagnosis of GI bleed so they could be evaluated by Gastroenterology Service. During the course of hospitalization, he was closely monitored for the GI bleed via clinical signs, vitals and daily labs. Procedure(s): [address] [address] IMAGING REPORT Signed PATIENT: CARMEN VALENZUELA MR#: [id number] : 1975 SEX: M AGE: 49 LOCATION: [facility] ORDER 49 STATUS: [facility] REPORT#: [id number] SERVICE 48 REASON: Abdominal Pain s/p colonoscopy egd ORDERING PHYSICIAN: SAMY TELLO PROCEDURE: ABD PEL W - CT ABDOMEN/PELVIS W/CONTRAST CT ABDOMEN/PELVIS W/CONTRAST HISTORY: Abdominal Pain s/p colonoscopy egd TECHNIQUE: CT ABDOMEN/PELVIS W/CONTRAST Omnipaque contrast was used. Oral contrast was not given. Coronal and sagittal reformats were obtained. CT was performed with one or more of the following dose reduction techniques: Automated exposure control, adjustment of the mA and/or kV according to the patient's size, or use of the iterative reconstruction technique. Comparison: None. FINDINGS: No pulmonary consolidation or pleural effusion is seen. Cirrhotic morphology of the liver is seen with splenomegaly and persistent rise in the upper abdomen. The spleen measures 17.3 cm. Patent TIPS stent is noted. There is no calcified gallstone. Nonobstructing 4 mm left intrarenal calculus is seen in the lower pole. The spleen, pancreas, and adrenal glands are within normal limits. Distended urinary bladder. Correlate for urinary retention. No bowel obstruction is seen. Normal appendix. Reproductive organs are grossly within normal limits for patient's age. No bowel obstruction identified. Appendix is normal in caliber. Degenerative changes of the spine. Visualized aorta is normal in caliber. IMPRESSION: 1. Distended urinary bladder. Correlate for urinary retention. 2. No bowel obstruction is seen. Normal appendix. 3. Cirrhosis with portal hypertension and patent TIPS stent. 4. Additional findings as described above. . DICTATED BY: PAULA BANDA MD DATE: 08/05/242108 ELECTRONICALLY SIGNED BY: PAULA BANDA MD DATE: 08/05/242114 [address] [address] IMAGING REPORT Signed PATIENT: CARMEN VALENZUELA MR#: [id number] : 1975 SEX: M AGE: 49 LOCATION: [facility] ORDER [id number] STATUS: ADM IN REPORT#: [id number] SERVICE [id number] REASON: pre procedural ORDERING PHYSICIAN: ELVIN OSORIO PROCEDURE: CXR1VW - CHEST 1VW Exam Type: CHEST 1VW Clinical Information: pre procedural Comparison: None Findings: The lungs are clear of infiltrates. The heart is normal in size. The bony and soft tissue structures of the chest are unremarkable. Impression: Clear lungs. 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 Follow up with the primary care provider within 2 weeks of the discharge Discharge medications: None Patient was advised to go to nearest emergency department or call 911 if he starts to experience any blood in the stool, lightheadedness, chest pain or any other life-threatening symptoms. Discharge Instructions: ATTESTATION BY PHYSICIAN I have seen and examined the patient. I reviewed the documentation, medical decision making, and treatment plan as noted by the resident provider above. I agree with the findings and plan of care. Evelia Palmer MD Home Medications: Reported Medications Aripiprazole (Abilify) 20 Mg Tablet, 1 TAB PO DAILY for 30 Days, #30 TAB 0 Refills 08/06/24 Trazodone HCl (Trazodone HCl) 50 Mg Tablet, 4 TAB PO HS for 30 Days, #30 TAB 0 Refills 08/06/24 Gabapentin (Gabapentin) 100 Mg Capsule, 1 CAP PO BID for 30 Days, #90 CAP 0 Refills 08/06/24 Dexlansoprazole (Dexilant) 30 Mg Cap., 1 CAP PO DAILY for 30 Days, #30 CAP 0 Refills 08/06/24 Bupropion HCl (Bupropion HCl Sr) 150 Mg Tablet.er, 150 MG PO DAILY, TAB 07/27/23 Rifaximin (Xifaxan) 550 Mg Tablet, 550 MG PO BID, TAB 07/27/23 Discontinued Reported Medications Gabapentin (Gabapentin) 100 Mg Capsule, 100 MG PO [id number] for ANXIETY, CAP 07/27/23 Azilsartan Medoxomil (Edarbi) 40 Mg Tablet, 40 MG PO DAILY, TAB 07/27/23 Guaifenesin/Codeine Phosphate (Guaifenesin-Codeine Syrup) 10 Mg-100 Mg/5 Ml Liquid, 10 ML PO Q6HPRN PRN for cough 07/27/23 Discontinued Scripts Cefdinir (Cefdinir) 300 Mg Capsule, 300 MG PO BID for 5 Days, #10 CAP Prov:ANNIE MONTILLA MD 07/28/23 Continued Medications: Aripiprazole (Abilify) 20 Mg Tablet 1 TAB PO DAILY for 30 Days, #30 TAB 0 Refills Bupropion HCl (Bupropion HCl Sr) 150 Mg Tablet.er 150 MG PO DAILY, TAB Dexlansoprazole (Dexilant) 30 Mg Cap. 1 CAP PO DAILY for 30 Days, #30 CAP 0 Refills Gabapentin (Gabapentin) 100 Mg Capsule 1 CAP PO BID for 30 Days, #90 CAP 0 Refills Rifaximin (Xifaxan) 550 Mg Tablet 550 MG PO BID, TAB Trazodone HCl (Trazodone HCl) 50 Mg Tablet 4 TAB PO HS for 30 Days, #30 TAB 0 Refills Time spent arranging discharge: 31-60 minutes ATTESTATION BY PHYSICIAN I have seen and examined the patient. I reviewed the documentation, medical d ecision making, and treatment plan as noted by the resident provider above. I agree with the findings and plan of care. Evelia Palmer MD, MANALI MD Aug 09, 2024 17:44
== END 2024-08-09 17:23 | disposition home or self-care (01) | DRG 378 ==
LOC: EDH 16:24 → 3DH 16:25 → UNDOADMIN 23:28 → 3DH 23:28
PROVIDERS: ADMIT Internal Medicine; ATTEND Internal Medicine
DX: K92.2 Gastrointestinal hemorrhage, unspecified (principal); K76.6 Portal hypertension; D70.9 Neutropenia, unspecified; D69.6 Thrombocytopenia, unspecified; F41.9 Anxiety disorder, unspecified; F31.9 Bipolar disorder, unspecified; I10 Essential (primary) hypertension; K74.60 Unspecified cirrhosis of liver; Z85.6 Personal history of leukemia; Z79.899 Other long term (current) drug therapy
CPT/HCPCS: 36415; 71045; 74177; 80048; 80053; 80076; 81003; 82140; 82270; 83690; 83735; 84100; 85014; 85018; 85025; 85610; 85730; 86850; 86900; 86901; 93005; 96374; 96375; 99285; G0378; J2354; J2405; J2470; J7030; J7050; Q9967; A4600